=== PATIENT | male | born 1940 ===

== ENCOUNTER 2023-12-08 06:45 | Emergency (ER) | payer MEDICARE | END 2023-12-08 09:22 | disposition home or self-care (01) | LOC: LL.ED 06:45 → SUPCPDRO 06:45 → LL.ED 09:22 | DX: M25.561 Pain in right knee (principal); M25.551 Pain in right hip; E03.9 Hypothyroidism, unspecified; N18.30 Chronic kidney disease, stage 3 unspecified; E11.22 Type 2 diabetes mellitus with diabetic chronic kidney disease; Z79.01 Long term (current) use of anticoagulants; Z79.899 Other long term (current) drug therapy | CPT/HCPCS: 73562-RT; 99283 ==